=== PATIENT | female | born 1935 | race Caucasian/White ===

== ENCOUNTER → 2016-12-25 | Outpatient (CLI) | payer BC, MEDICARE | END | disposition home or self-care (01) | LOC: LAB.O 11:12 | PROVIDERS: ATTEND Family Medicine | DX: Z79.899 Other long term (current) drug therapy (principal); E56.8 Deficiency of other vitamins; E34.8 Other specified endocrine disorders; E03.8 Other specified hypothyroidism; Z00.00 Encounter for general adult medical examination without abnormal findings ==

== ENCOUNTER → 2017-10-29 | Outpatient (CLI) | payer OTHER | LOC: LAB.O 11:47 | PROVIDERS: ATTEND Nurse Practitioner | DX: R73.09 Other abnormal glucose (principal); E55.9 Vitamin D deficiency, unspecified; E03.8 Other specified hypothyroidism; Z79.899 Other long term (current) drug therapy ==

== ENCOUNTER → 2018-02-19 | Outpatient (CLI) | payer OTHER | LOC: LAB.O 09:55 | PROVIDERS: ATTEND Nurse Practitioner | DX: E34.9 Endocrine disorder, unspecified (principal); R79.0 Abnormal level of blood mineral; K90.9 Intestinal malabsorption, unspecified; E55.9 Vitamin D deficiency, unspecified; E61.2 Magnesium deficiency; R25.1 Tremor, unspecified; R94.6 Abnormal results of thyroid function studies; Z79.899 Other long term (current) drug therapy ==

== ENCOUNTER → 2018-06-09 | Outpatient (CLI) | payer OTHER | LOC: LAB.O 10:38 | PROVIDERS: ATTEND Nurse Practitioner | DX: E03.4 Atrophy of thyroid (acquired) (principal); R79.0 Abnormal level of blood mineral ==

== ENCOUNTER → 2018-08-28 | Outpatient (CLI) | payer OTHER | LOC: LAB.O 12:02 | PROVIDERS: ATTEND Family Medicine | DX: E03.2 Hypothyroidism due to medicaments and other exogenous substances (principal); R79.0 Abnormal level of blood mineral ==

== ENCOUNTER → 2018-09-17 | Outpatient (CLI) | payer OTHER ==
--- NOTE | 2018-09-18 09:01 | RAD ---
EXAM DESCRIPTION: Knee,Left 2 or More Views CLINICAL HISTORY: KNEE PAIN COMPARISON: None. TECHNIQUE: 2 views left. FINDINGS: Mild medial and lateral femoral osteophyte formation is observed. There is also some lateral tibial osteophyte formation. 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 No joint effusion is detected. Mild osteopenia is observed. No fracturing is detected. IMPRESSION: Mild degenerative changes are observed. No fracturing is detected. Electronically signed by: Aureliano Carvajal MD 09/18/2018 8:58 AM [facility]
--- NOTE | 2018-09-18 09:02 | RAD ---
EXAM DESCRIPTION: Knee,Right 2 or More Views CLINICAL HISTORY: KNEE PAIN COMPARISON: None. TECHNIQUE: 2 views right FINDINGS: Loss of lateral joint space is observed. Lateral femoral and tibial osteophyte formation is noted. 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 No joint effusion is detected. No fracturing is detected. IMPRESSION: Degenerative changes are observed most pronounced in the lateral joint compartment. Electronically signed by: Aureliano Carvajal MD 09/18/2018 8:59 AM [facility]
--- NOTE | 2018-09-18 09:03 | RAD ---
EXAM DESCRIPTION: Hip,Left 2 Views CLINICAL HISTORY: HIP PAIN COMPARISON: None. TECHNIQUE: 2 views left FINDINGS: Mild acetabular osteophyte formation is observed. No evidence for fracture is seen. No pelvic abnormality is detected. IMPRESSION: Mild degenerative changes are observed in the left hip. Electronically signed by: Aureliano Carvajal MD 09/18/2018 9:00 AM [facility]
--- NOTE | 2018-09-18 09:04 | RAD ---
EXAM DESCRIPTION: Hip,Right 2 Views CLINICAL HISTORY: HIP PAIN COMPARISON: None. TECHNIQUE: 2 views right. FINDINGS: Mild acetabular osteophyte formation is observed. No fracturing is detected. No pelvic injury is seen. IMPRESSION: Mild degenerative changes are observed. Electronically signed by: Aureliano Carvajal MD 09/18/2018 9:00 AM [facility]
== END ==
LOC: RAD 14:12
PROVIDERS: ATTEND Nurse Practitioner
DX: M25.561 Pain in right knee (principal); M25.562 Pain in left knee; M25.551 Pain in right hip; M25.552 Pain in left hip

== ENCOUNTER → 2019-03-08 | Outpatient (CLI) | payer OTHER | LOC: LAB.O 11:11 | PROVIDERS: ATTEND Family Medicine | DX: R73.09 Other abnormal glucose (principal); R79.0 Abnormal level of blood mineral; R53.83 Other fatigue; Z79.899 Other long term (current) drug therapy ==

== ENCOUNTER → 2019-12-24 | Outpatient (CLI) | payer OTHER | LOC: LAB.O 12-23 14:48 | PROVIDERS: ATTEND Nurse Practitioner Family | DX: E03.9 Hypothyroidism, unspecified (principal); E34.9 Endocrine disorder, unspecified; N95.1 Menopausal and female climacteric states ==

== ENCOUNTER → 2020-07-18 | Outpatient (CLI) | payer OTHER | LOC: LAB.O 11:54 | PROVIDERS: ATTEND Nurse Practitioner Family | DX: E03.9 Hypothyroidism, unspecified (principal) ==